=== PATIENT | female | born 1965 | race Hispanic/Latino ===

== ENCOUNTER 2020-05-04 11:41 | Emergency (ER) | payer SELFPAY | END 2020-05-04 12:41 | disposition home or self-care (01) | LOC: EDH 11:41 | DX: S80.861A Insect bite (nonvenomous), right lower leg, initial encounter (principal); I10 Essential (primary) hypertension; Z90.49 Acquired absence of other specified parts of digestive tract; W57.XXXA Bitten or stung by nonvenomous insect and other nonvenomous arthropods, initial encounter; Y93.89 Activity, other specified; Y92.89 Other specified places as the place of occurrence of the external cause; Y99.8 Other external cause status | CPT/HCPCS: 99281 ==

== ENCOUNTER 2024-11-19 23:11 | Emergency (ER) | payer BC ==
[~2024-11-19] VITALS: Ht 154.9 cm; Wt 69.1 kg
--- NOTE | 2024-11-19 23:29 | ERN ---
General Chief Complaint: Hypertension Stated Complaint: HEADACHE, HTN Time Seen by MD: 23:15 Source: patient, family History of Present Illness Initial Comments Patient is a 59-year-old female with high blood pressure and hypercholesterolemia. She does not have diabetes. Yesterday she felt her usual symptoms of blurry vision and headache associated with episodes of high blood pressure and so she stayed home from work but then tonight she measured her blood pressure again at home and it was over 200 systolic so she comes to the emergency room I 1st blood pressure measurement here is 208 over 78. He has her typical headache and blurry vision symptoms. Incidentally she says that she has upper chest pain and that she wanted to go to a clinic today to get a chest x- ray but they did not have radiology there. Patient's blood pressure is decreased to 156 with a single dose of clonidine I will send home. Allergies: Coded Allergies: No Known Drug Allergies (Unverified Allergy, Unknown, 05/04/20) Past Medical History Past Medical History: High Cholesterol, Hypertension Past Surgical History: Cholecystectomy ROS Dictation Review of systems is negative except for what is in the HPI. Patient has none of the following: Mental status changes decrease in mental status lightheadedness sore throat difficulty breathing shortness of breath chest pain nausea vomiting abdominal pain chills or fevers moves all extremities. Physical Exam General Appearance: (+) no apparent distress Orientation: (+) alert Head/Face Trauma: No Eye: bilateral eye normal inspection, bilateral eye PERRL, bilateral eye EOMI Ear, Nose, Throat: (+) hearing grossly normal, (+) normal ENT inspection, (+) moist mucous membraine Neck: (+) normal inspection, (+) supple Respiratory: (+) chest non-tender, (+) lungs clear, (+) well ventilated Heart: (+) regular, (+) no gallop Vascular: (+) no edema, (+) normal peripheral pulse Gastrointestinal: (+) soft, (+) non-tender, (+) no organomegaly, (+) bowel sound present Results Laboratory and Microbiology Lab and Micro Result Laboratory Tests Test 11/19/24 23:26 Sodium Level 143 mmol/L (136-145) Potassium Level 3.9 mmol/L (3.5-5.1) Chloride Level 105 mmol/L (101-111) Carbon Dioxide Level 29 mmol/L (21-32) Blood Urea Nitrogen 19 mg/dL (7-18) H Creatinine 0.9 mg/dL (0.5-1.0) Glomerular Filtration Rate Calc 73 mL/min (>90) Random Glucose 156 mg/dL (70-105) H Total Calcium 9.5 mg/dL (8.5-10.1) Troponin I High Sensitivity 7 ng/L (4-50) MDM Given the patient's chest pain we will do the standard cardiology workup. The patient currently takes losartan for her high blood pressure and she is compliant. I will give patient 0.1 mg of clonidine p.o. to lower her blood pressure no ED Course Orders Procedure Category Date Status Time Clonidine Hcl 0.1 Mg PHA 11/19/24 Complete Tablet (Catapres 0. 23:30 12 Lead Ekg Tracing- EKG 11/19/24 Complete Technical 23:30 Basic Metabolic Panel LAB 11/19/24 Complete 23:30 Troponin I High LAB 11/19/24 Complete Sensitivity 23:30 Hydralazine 20mg Inj PHA 11/20/24 Complete (Apresoline 20mg In 00:30 Current Medications Medications (Trade) Dose Ordered Sig/Marta Route PRN Reason Start Time Stop Time Status Last Admin Dose Admin Clonidine HCl (CATApres 0.1 mg TAB) 0.1 mg ONCE ONCE PO 11/19/24 23:30 11/19/24 23:36 DC 11/19/24 23:41 Hydralazine HCl (APRESOLine 20MG INJ) 10 mg ONCE ONCE IV 11/20/24 00:30 11/20/24 00:31 DC Vital Signs Date Time Temp Pulse Resp B/P (MAP) Pulse Ox O2 Delivery O2 Flow Rate FiO2 11/20/24 00:27 68 18 160/63 95 Room Air* 0 21 11/19/24 23:46 70 18 183/69 96 Room Air* 0 21 11/19/24 23:41 77 208/86 11/19/24 23:12 98.2 77 20 201/75 96 Room Air DX & DISP Disposition: Discharge Departure Impression: Primary Impression: Hypertension Condition: Stable Referrals: EDNA CROWELL (PCP) KALYANI BERNAL MD Nov 19, 2024 23:29
--- NOTE | 2024-11-19 23:37 | EKG ---
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
[2024-11-19] MEDS: cloNIDine HCL 0.1 MG TABLET PO ONE (23:41)
[2024-11-19 23:49] LABS: CREATININE 0.9 mg/dL (0.5-1.0); POTASSIUM 3.9 mmol/L (3.5-5.1)
[2024-11-20 00:50] VITALS: BP 152/60; PULSE 69; RESP 17; TEMP 98.4; O2SAT 98
[2024-11-20] MEDS: hydrALAZine 20MG/ML VIAL IV ONE (00:50)
== END 2024-11-20 01:14 | disposition home or self-care (01) ==
LOC: EDH 23:11
DX: I10 Essential (primary) hypertension (principal); R51.9 Headache, unspecified; E78.00 Pure hypercholesterolemia, unspecified; Z90.49 Acquired absence of other specified parts of digestive tract
CPT/HCPCS: 36415; 80048; 84484; 93005; 99284